=== PATIENT | female | born 1995 ===

== ENCOUNTER 2018-02-04 06:58 | Day surgery (SDC) | payer OTHER ==
[~2018-02-04 06:58] MED LIST: Ciprofloxacin 0.3% OPTH SOLN OS SCH; Cyclopentolate 1% Opth (2 ml) OS SCH; Flurbiprofen 0.03% Opht SOLN OS SCH; Lactated Ringer's 500 ML IV ONE; Phenylephrine 2.5% Opht Soln OS SCH; Tropicamide 1% Opht SOLUTION OS SCH
[2018-02-04] MEDS ORDERED: Lactated Ringer's 1,000 ML IV ONE (07:30)
[2018-02-04] MEDS ORDERED: Carbachol 0.01% IO ONE (08:00)
[2018-02-04] MEDS ORDERED: Tetracaine 0.5% Ophth (OR ONLY) ONE (08:00)
[2018-02-04] MEDS ORDERED: Tobramycin/Dexamethasone OPHT OINT ONE (08:00)
[2018-02-04] MEDS ORDERED: Povidone Iodine Ophthalmic 5% Soln ONE (08:00)
[2018-02-04] MEDS ORDERED: Chondroitin/Hyaluronate Opth Syringe KIT (0.55 ml-0.5 ml) IO ONE (08:01)
[2018-02-04] MEDS ORDERED: Hyaluronidase Human, Recombi 150 U/ML VIAL ONE (08:01)
[2018-02-04] MEDS ORDERED: Propofol 10 mg/ml Inj (20 ML) ONE (08:35)
[2018-02-04] MEDS ORDERED: Phenylephrine 10 mg/ml Inj ONE (08:50)
[2018-02-04 12:46] VITALS: BP 100/51; PULSE 87; RESP 15; TEMP 97.7; O2SAT 97
--- NOTE | 2018-02-10 08:33 | OP ---
PROCEDURE DATE: 02/04/2018 PREOPERATIVE DIAGNOSIS: MATURE CATARACT, LEFT EYE. POSTOPERATIVE DIAGNOSIS: MATURE CATARACT, LEFT EYE. OPERATIVE PROCEDURE: CATARACT EXTRACTION WITH TRYPAN BLUE DYE, LEFT EYE. ANESTHESIA TYPE: General. ANESTHESIOLOGIST: COMPLICATIONS: None. PROCEDURE: General anesthesia was easily induced. The patient was then prepped and draped in the usual sterile fashion for ophthalmic surgery. Betadine drops were placed into the eye. A lid speculum was used and a sideport incision was made using a 15 degree blade. Trypan blue dye was used to stain the anterior capsule. Viscoelastic was used to fill the anterior chamber and a 2.7 millimeter slit blade was used to create a surgical opening. Additional viscoelastic was placed into the eye and a capsulorrhexis was performed. Hydrodissection and delineation were then carried out. Phacoemulsification of the nucleus was performed with ease and cortical cleanup was achieved without difficulty. The capsular bag was refilled using viscoelastic and a posterior chamber lens was inserted through the existing wound and placed into the capsular bag and easily centered. All viscoelastic was then aspirated from the eye and Miochol was instilled for good symmetric pupillary constriction. The sideport wound was hydrated as necessary and a good watertight closure was observed at the conclusion of the case. A TobraDex soaked collagen shield was then placed over the eye. The lid speculum was removed. TobraDex ointment was placed onto the eye and a patch and shield were placed. The patient tolerated the procedure well. Baldev Graf MD
== END 2018-02-04 10:30 | disposition home or self-care (01) ==
LOC: C.SDS 06:58
PROVIDERS: ATTEND Ophthalmology
DX: H25.89 Other age-related cataract (principal)
CPT/HCPCS: 66984; J2370; J2704; J3010; J3470; J7120; V2632